=== PATIENT | male | born 1990 | race Hispanic/Latino ===

== ENCOUNTER → 2025-08-07 14:17 | Outpatient (CLI) | payer OTHER, SELFPAY ==
--- NOTE | 2025-08-07 14:28 | DI.RAD.S_ITS ---
PROCEDURE: XR LUMBAR SPINE 2-3V INDICATIONS: Lumbar spine TECHNIQUE: 3 views of the lumbar spine were acquired. COMPARISON: None. FINDINGS: Bones: 5 nonrib-bearing vertebrae are present. No acute vertebral body compression fractures. No suspicious bony lesions. Normal alignment. Moderate to marked L4-5 and moderate L3-4 and air and L5-S1 disc pain. Facet sclerosis is most pronounced at L4-5 and L5-S1. Soft tissues: Overlying bowel gas pattern is normal. No suspicious soft tissue calcifications. IMPRESSION: Degenerative disc and facet arthropathy as above. No acute bony abnormality. Dictated by: Rosita Chaparro M.D. on 08/08/2025 at 10:01 Approved by: Rosita Chaparro M.D. on 08/08/2025 at 10:03
== END ==
PROVIDERS: PCP Chiropractor; Referring Provider Chiropractor; Visit Provider Chiropractor
DX: M46.96 Unspecified inflammatory spondylopathy, lumbar region (principal); M47.816 Spondylosis without myelopathy or radiculopathy, lumbar region; M47.817 Spondylosis without myelopathy or radiculopathy, lumbosacral region
CPT/HCPCS: 72100